=== PATIENT | female | born 1960 ===

== ENCOUNTER 2023-06-07 08:24 | Day surgery (SDC) | payer OTHER ==
[2023-06-07 09:25] LABS: Potassium 3.6 mEq/L (3.5-5.1)
[2023-06-07] MEDS ORDERED: CEFAZOLIN SODIUM 1 GM/VIAL ONE (09:35)
[2023-06-07] MEDS ORDERED: NA CHLORIDE 0.9% 500 ML ONE (09:36)
[2023-06-07] MEDS ORDERED: propofoL 200 MG/20 ML VIAL IV ONE (10:44)
[2023-06-07] MEDS ORDERED: NA CHLORIDE 0.9% 1,000 ML ONE (10:45)
[2023-06-07] MEDS ORDERED: MIDAZOLAM HCL 2 MG/2 ML INJ ONE ×2 (10:45→10:47)
[2023-06-07] MEDS ORDERED: BUPIVACAINE 0.25% PF 30 ML VIAL ONE (10:45)
[2023-06-07] MEDS ORDERED: FENTANYL CITR 100 MCG/2 ML ONE (10:45)
[2023-06-07] MEDS ORDERED: LIDOCAINE 2% MPF 5 ML VIAL ONE (10:45)
[2023-06-07] MEDS ORDERED: LIDOCAINE HCL/EPINEPHRINE 20 ML MDV ONE (10:45)
[2023-06-07] MEDS ORDERED: ONDANSETRON 4 MG/2 ML VIAL ONE (10:47)
[2023-06-07] MEDS ORDERED: ROCURONIUM 50 MG/5 ML VIAL IV ONE (10:47)
[2023-06-07] MEDS ORDERED: HEPARIN 500 UNIT/5 ML SYR IV ONE (10:56)
[2023-06-07] MEDS ORDERED: dexAMETHasone 4 MG/ML VIAL ONE (11:18)
--- NOTE | 2023-06-07 11:44 | P.OP ---
Preoperative diagnosis: End Stage Renal Disease Postoperative diagnosis: End Stage Renal Disease Primary procedure: Laparoscopic Placement of Double Cuff Peritoneal Dialysis Catheter Anesthesia: GETA + Local Estimated blood loss: <5cc Specimen: None Findings: 950cc returned of 1 liter infused Complications: None Implants: Deal Standard Double Cuffed Peritoneal Dialysis Catheter Transferred to: Recovery Room Condition: Good
[2023-06-07] MEDS ORDERED: GLYCOPYRROLATE 0.2 MG/ML SYR ONE (11:55)
[2023-06-07] MEDS ORDERED: NEOSTIGMINE 1 MG/ML -10 ML VIAL ONE (11:56)
[2023-06-07 12:52] VITALS: O2SAT 95
[2023-06-07] MEDS ORDERED: TRAMADOL HCL 50 MG TAB ONE (13:25)
--- NOTE | 2023-06-07 13:34 | OP ---
Date of Procedure: 06/07/2023 Surgeon: Augusto Kiran MD, Preoperative Diagnosis: End-stage renal disease. Postoperative Diagnosis: End-stage renal disease. Procedure Performed: Laparoscopic placement of double-cuffed peritoneal dialysis catheter. Anesthesia: General endotracheal plus local with 0.25% Marcaine. Estimated Blood Loss: Less than 5 cc. Specimens: None. Findings: 950 cc returned of 1 L infused. Complications: None. Implants: Merit standard double-cuffed peritoneal dialysis catheter. Disposition: The patient was transferred to recovery room in good condition. Procedure In Detail: After informed consent was obtained, the patient was brought to the operating r oom, prepped and draped in the usual sterile fashion. After adequate anesthesia was achieved, I anes thetized an area of the right upper quadrant down to subcutaneous tissues. A 5 mm 0-degree optical t rocar was introduced in the abdomen without any evidence of complication. Insufflation was obtained to 15 mmHg at this time. There was no injury to vital structure in the abdomen. At this point, the patient had been pre-stenciled preoperatively for placement of a left-sided peritoneal dialysis juan pablo ter. Following this, the patient was positioned in multiple ways and found to have a good pelvic prosper ding zone. At this point, I then anesthetized the skin overlying the left rectus muscle in the periu mbilical position following a pre-stenciled caridad. I then made an incision overlying the skin and is[place] john the introducer sheath, placing it towards the patient's coccyx with introducer sheath. The inner cannula was removed. Dilation was performed at this point and then the catheter was placed with lencho entation towards midline into the space of Retzius down and low into the pelvis with a medial curl. I then placed the tunneling device onto the catheter and keeping the orientation of the stripe for de marcation, brought the catheter out through the left previously placed abdominal stab incision, and b rought it out at this point. Air was passing quite easily and both cuffs were in the appropriate pos ition behind the rectus sheath and the subcutaneous tissues. At this point, a cap was placed and 1 L of fluid was infused after de-sufflating the abdomen in its entirety. I then allowed the bag to veronica l and within less than 5 minutes, a total of 950 cc was infused without need for repositioning at thi s point. The abdomen was re-insufflated at this point and a catheter remained in good position at th is point. I then inspected the area. No additional maneuvers were required and as such, the abdomen was desufflated in its entirety. All skin incisions were then copiously irrigated and closed with a 4-0 Monocryl in a running fashion. Dermabond placed over top. The patient tolerated the procedure well without evidence of complication and was transferred to PACU in good condition. All counts were correct at the end of the case. MARIA ESTHER/SHARDA Voice ID: [id number] Report ID: [id number]
[2023-06-07 14:27] VITALS: BP 144/80; TEMP 97.4
--- NOTE | 2023-06-08 14:10 | EKG ---
Test Date: 2023-06-07 Test Time: 09:49:08 Orthotic Technician: KAMRAN MEASUREMENT RESULTS: Intervals: Rate: 73 LA: 144 QRSD: 78 QT: 428 QTc: 471 Salmon: P: 74 LA: 144 QRS: 84 T: 71 INTERPRETIVE STATEMENTS: Normal sinus rhythm Normal ECG No previous ECG available for comparison Electronically Signed On 06-08-23 14:07:16 PREPARATION CENTER COORDINATOR by Gerry Helton
== END 2023-06-07 14:20 | disposition home or self-care (01) ==
LOC: OR 08:24
PROVIDERS: ATTEND Surgery
PROC: 0WHG43Z Insertion of Infusion Device into Peritoneal Cavity, Percutaneous Endoscopic Approach (ICD-10-PCS; principal; 2023-06-07 12:00)
DX: N18.6 End stage renal disease (principal); Z99.2 Dependence on renal dialysis
CPT/HCPCS: 93005; 80048; 36415; 49324; J2704; J1100; J2710; J2001; J2250; J3010; J1642; J2405; J7040; J7030; J0690